=== PATIENT | female | born 1995 | race Hispanic/Latino ===

== ENCOUNTER 2018-03-09 08:58 | Outpatient (CLI) | payer OTHER | END 2018-03-09 08:59 | disposition home or self-care (01) | LOC: BICULT 08:58 | PROVIDERS: ATTEND Family Medicine | DX: O99.89 Other specified diseases and conditions complicating pregnancy, childbirth and the puerperium (principal); R10.9 Unspecified abdominal pain; Z3A.21 21 weeks gestation of pregnancy | CPT/HCPCS: 76700; 76805 ==

== ENCOUNTER 2018-07-07 03:57 | Inpatient (IN) | payer OTHER ==
[2018-07-07 04:32] VITALS: BMI 29.9
[2018-07-07] MEDS: Lactated Ringer's 1,000 ML IV SCH ×3 (05:40→20:18)
[2018-07-07 06:07] LABS: Hemoglobin 10.7 g/dL (12.0-16.0); Mean Corpuscular HGB CONC 33.4 g/dL (32.0-36.0); Mean Corpuscular Hemoglobin 27.6 pg (27.0-31.0); Mean Corpuscular Volume 82.5 fL (78.0-98.0); Mean Platelet Volume 7.8 fL (7.4-10.4); Platelet Count 285 thou/uL (130-400); RBC Distribution Width 12.1 % (11.5-14.5); Red Blood Cell (RBC) Count 3.88 mill/uL (4.20-5.40); White Blood Cell (WBC) Count 7.7 thou/uL (4.8-10.8)
[2018-07-07] MEDS ORDERED: Ondansetron HCl/PF 4 MG/2 ML Vial IVP PRN ×2 (06:16→12:18)
[2018-07-07] MEDS ORDERED: Butorphanol Tartrate 1 MG/ML VIAL SLOW IVP PRN (06:16)
[2018-07-07] MEDS ORDERED: Promethazine HCl 25 MG/ML VIAL IM PRN ×2 (06:16→12:18)
[2018-07-07] MEDS ORDERED: Methylergonovine 0.2 MG/ML VIAL IM PRN (06:30)
[2018-07-07] MEDS ORDERED: NS / Oxytocin 40 units/1000ml 1,000 ML IV SCH (06:30)
[2018-07-07] MEDS ORDERED: Misoprostol 200 MCG TAB RC PRN (06:30)
[2018-07-07] MEDS ORDERED: Carboprost 250 MCG/ML AMP IM PRN (06:30)
[2018-07-07] MEDS ORDERED: Penicillin G Potassium 5 MILL.UNITS in Sodium Chloride 0.9% 100 ML IVPB SCH (06:30)
[2018-07-07] MEDS ORDERED: NS w/ Oxytocin 10 units 500 ML IV SCH (06:30)
[2018-07-07] MEDS ORDERED: Lidocaine 1% (PF) 30 ML VIAL SC PRN (06:30)
[2018-07-07] MEDS ORDERED: Ibuprofen 800 MG TAB PO PRN (06:30)
[2018-07-07 06:46] LABS: HBSAg Index 0.14 S/CO (0-0.99); Hep B Surf Ag Non-Reactive S/CO (NonReactive); Syphilis Antibody Nonreactive (Nonreactive); Syphilis Antibody Index 0.04 S/CO (<1.00 Non-Reactive)
[2018-07-07] MEDS: NS w/ Oxytocin 10 units 500 ML IV SCH ×2 (07:15→11:01)
[2018-07-07] MEDS ORDERED: Lidocaine 2% MPF 10 ML AMP (For Epidural Use) ONE (09:00)
[2018-07-07] MEDS ORDERED: Bupivacaine/Epinephrine 0.25% 30 ML VIAL ONE (09:00)
[2018-07-07] MEDS ORDERED: DISCONTINUE ALL PREVIOUS NARCOTICS FS SCH (11:15)
[2018-07-07] MEDS ORDERED: Lactated Ringer's 500 ML IV PRN (12:18)
[2018-07-07] MEDS ORDERED: Naloxone HCl 0.4 mg/ml Vial IVP PRN ×2 (12:18)
[2018-07-07] MEDS ORDERED: Eucerin (Mineral Oil/Petrolatum,White) 30 gm Jar TOP PRN (12:18)
[2018-07-07] MEDS ORDERED: diphenhydrAMINE 50 MG/ML VIAL IVP PRN (12:18)
[2018-07-07] MEDS ORDERED: ePHEDrine/0.9% NaCl/PF SYRINGE 50 mg/10 ml SLOW IVP PRN (12:18)
[2018-07-07] MEDS ORDERED: fentaNYL Citrate/PF 400 MCG, Bupivacaine 0.5% 20 ML in Sodium Chloride 0.9% 72 ML EPIDURAL SCH (12:30)
[2018-07-07] MEDS ORDERED: Communication Order-Pharmacy FS SCH (12:30)
[2018-07-07] MEDS: Bupivacaine 0.5% 20 ML, fentaNYL Citrate/PF 400 MCG in Sodium Chloride 0.9% 72 ML EPIDURAL SCH ×2 (12:35→20:26)
[2018-07-07] MEDS: Penicillin G 2.5 MILL.units 50 ML IVPB SCH ×3 (14:32→23:12)
--- NOTE | 2018-07-07 20:32 | PDOC.EVN ---
Event Note - Event Note Event Note: Came to reevaluate the patient in labor. Was doing well all day with category I FHT and then had a 7 minute deceleration into the 60's with slow recovery. Repositioned to knee chest and FSE and IUPC placed. On review of the tracing, she had several contractions about a minute apart then had an episode of vomiting which preceeded the deceleration. When I arrived on the unit the baby was back to baseline 140, with moderate variability and accelerations. Adequate MVU noted. CTX still Q2 minutes with pitocin off. Will continue to labor without pitocin for now and restart only if no cervical change. SVE per the RN /-1.
[2018-07-08] MEDS: Penicillin G 2.5 MILL.units 50 ML IVPB SCH ×3 (03:02→15:23)
[2018-07-08] MEDS: Bupivacaine 0.5% 20 ML, fentaNYL Citrate/PF 400 MCG in Sodium Chloride 0.9% 72 ML EPIDURAL SCH (03:39)
[2018-07-08] MEDS: Lactated Ringer's 1,000 ML IV SCH (03:54)
--- NOTE | 2018-07-08 08:31 | PDOC.EVN ---
Event Note - Event Note Event Note: Evaluated patient in labor. Very slow cervical change overnight but still changing. On pitocin 8mu. FHT category II - occasional variable decels only with vomiting or sitting straight up in bed. Plan discussed with patient and she feels good continuing to labor. No immediate distress. SVE 9.5/100/-1 , asynclitic. Continue expectant management for now. CTX are adequate.
[2018-07-08] MEDS: NS / Oxytocin 40 units/1000ml 1,000 ML IV SCH ×2 (10:07→14:33)
--- NOTE | 2018-07-08 10:28 | PDOC.OPDEL ---
OB Operative/Delivery Note Delivery Dr/Surgeon: Andreas Pre-Delivery Diagnosis: active labor, ruptured membrane Procedure/Post Delivery Dx: spontaneous vaginal delivery Weeks gestation: 39 Anesthesia: epidural - Findings New Baby Sex: male - 1 min: 8 - 5 min: 9 - Additional Findings/Plan Placenta delivered: spontaneous Repaired Obstetrical Laceration: none Compilations/Other Findings: Progressed to complete and pushing, delivered live male, head EUNICE, no nuchal cord, shoulders and body easily followed, infant placed on mother's abdomen. Placenta delivered spontaneously and intact. Uterine fundus firm after delivery. Mom and baby in excellent condition attempting to breastfeed.
[2018-07-08] MEDS ORDERED: Milk Of Magnesia 30 ML UDCUP PO PRN (11:53)
[2018-07-08] MEDS ORDERED: Bisacodyl 10 MG SUPP PR PRN (11:53)
[2018-07-08] MEDS ORDERED: Preparation H Ointment 28 GM TUBE PR PRN (11:53)
[2018-07-08] MEDS ORDERED: diphenhydrAMINE 25 MG CAP PO PRN (11:53)
[2018-07-08] MEDS: Ibuprofen 800 MG TAB PO SCH ×2 (12:43→21:38)
[2018-07-08] MEDS: Lanolin Ointment 7 GM TUBE TOP PRN (18:59)
[2018-07-08] MEDS: Ferrous Sulfate 325 MG TAB PO SCH (18:59)
[2018-07-08] MEDS: Docusate Calcium (SURFAK) 240 MG CAP PO SCH (21:38)
[2018-07-09] MEDS ORDERED: Benzocaine/Menthol 20-0.5% 60 ML CAN TOP PRN (00:32)
[2018-07-09] MEDS: Ibuprofen 800 MG TAB PO SCH ×2 (05:16→13:27)
[2018-07-09 05:22] LABS: Mean Corpuscular HGB CONC 33.2 g/dL (32.0-36.0); Mean Corpuscular Hemoglobin 27.6 pg (27.0-31.0); Mean Corpuscular Volume 83.3 fL (78.0-98.0); Mean Platelet Volume 7.6 fL (7.4-10.4); Platelet Count 232 thou/uL (130-400); RBC Distribution Width 12.3 % (11.5-14.5); Red Blood Cell (RBC) Count 3.26 mill/uL (4.20-5.40); White Blood Cell (WBC) Count 13.7 thou/uL (4.8-10.8)
[2018-07-09 07:41] VITALS: BP 115/74; TEMP 99
[2018-07-09] MEDS: Docusate Calcium (SURFAK) 240 MG CAP PO SCH (09:07)
[2018-07-09] MEDS: Ferrous Sulfate 325 MG TAB PO SCH (09:07)
[2018-07-09] MEDS: Lanolin Ointment 7 GM TUBE TOP PRN ×2 (09:09→13:27)
--- NOTE | 2018-07-09 09:09 | PDOC.PP ---
Post Progress Note Post Day #: 1 Subjective: No c/o, doing well. well. PO intake tolerated: yes Flatus: yes Ambulation: yes Vital Signs (12 hours) Temp Pulse Resp BP Pulse Ox 07/09/18 08:00 97 07/09/18 07:40 99.0 F 77 18 115/74 97 07/09/18 05:16 98.3 F 68 18 97/50 L 07/09/18 00:40 97.4 F L 66 18 105/58 L Weight Weight 143 lb - Physical Examination General: NAD Cardiovascular: no m/r/g, RRR Respiratory: clear to auscultation bilaterally, non-labored breathing Abdominal: + bowel sounds, lochia, no distention, appropriately TTP Psychiatric: A&Ox3, normal affect Result Diagrams: 07/09/18 05:14 Additional Labs: Post Labs Blood Type O POSITIVE 07/07/18 05:55 Hep Bs Antigen Non-Reactive S/CO (NonReactive) 07/07/18 05:55 (1) Vaginal delivery Code(s): O80 - ENCOUNTER FOR FULL-TERM UNCOMPLICATED DELIVERY Status: Acute
== END 2018-07-09 14:30 | disposition home or self-care (01) | DRG 775 ==
LOC: L&D/OP 03:57 → L&D 05:53 → 3SW 07-08 14:28
PROVIDERS: ADMIT Family Medicine; ATTEND Family Medicine
PROC: 10E0XZZ Delivery of Products of Conception, External Approach (ICD-10-PCS; principal; 2018-07-07)
DX: O99.824 Streptococcus B carrier state complicating childbirth (principal); O76 Abnormality in fetal heart rate and rhythm complicating labor and delivery; Z3A.39 39 weeks gestation of pregnancy; Z37.0 Single live birth; O77.0 Labor and delivery complicated by meconium in amniotic fluid
CPT/HCPCS: 36415; 51702; 85027; 86780; 86850; 86900; 86901; 87340; 99285; J2001; J2540; J3010; J3490; J7050

== ENCOUNTER 2018-09-10 01:57 | Observation (INO) | payer OTHER ==
[2018-09-10] MEDS ORDERED: Ondansetron PF 4 MG/2 ML Vial ONE (02:33)
[2018-09-10] MEDS ORDERED: Morphine 4 MG/ML VIAL ONE (02:33)
[2018-09-10 02:56] LABS: #Basophils 0.1 thou/uL (0.0-0.2); #Eosinphils 0.1 thou/uL (0.0-0.7); #Lymphocytes 3.3 thou/uL (1.20-3.40); #Monocytes 0.5 thou/uL (0.11-0.59); %Basophils 1.3 % (0.0-1.0); %Eosinophils 1.2 % (0.0-10.0); %Lymphocytes 33.2 % (21.0-51.0); %Monocytes 4.5 % (0.0-10.0); %Neutrophils 59.8 % (42.0-75.0); Hemoglobin 12.2 g/dL (12.0-16.0); Mean Corpuscular HGB CONC 32.4 g/dL (32.0-36.0); Mean Corpuscular Hemoglobin 27.5 pg (27.0-31.0); Mean Corpuscular Volume 84.8 fL (78.0-98.0); Mean Platelet Volume 7.1 fL (7.4-10.4); Platelet Count 315 thou/uL (130-400); RBC Distribution Width 14.8 % (11.5-14.5); Red Blood Cell (RBC) Count 4.45 mill/uL (4.20-5.40)
[2018-09-10] MEDS ORDERED: Morphine 2 MG/ML SYRINGE ONE ×3 (03:15→03:49)
[2018-09-10 03:23] LABS: ALT (SGPT) 33 U/L (8-55); AST (SGOT) 28 U/L (5-34); Albumin 4.3 g/dL (3.5-5.0); Alkaline Phosphatase 90 U/L (40-150); Anion Gap 16 mmol/L (10-20); BUN (Urea Nitrogen) 13 mg/dL (7.0-18.7); Bilirubin, Total 0.5 mg/dL (0.2-1.2); Calc. Creatinine Clearance 0 mL/min (70-130); Calcium 9.4 mg/dL (7.8-10.44); Carbon Dioxide 23 mmol/L (22-29); Chloride 104 mmol/L (98-107); Estimated GFR-MDRD 81; Globulin 3.3 g/dL (2.4-3.5); Glucose 108 mg/dL (70-105); Lipase 16 U/L (8-78); Potassium 3.5 mmol/L (3.5-5.1); Protein, Total 7.6 g/dL (6.0-8.3); Sodium 139 mmol/L (136-145)
[2018-09-10 04:01] LABS: Bilirubin Negative (Negative); Blood, Urine Moderate (Negative); Clarity CLEAR (Clear); Glucose, Urine (Dipstick) Negative (Negative); Leukocyte Trace (Negative); Nitrite Positive (Negative); Protein, Urine (Dipstick) 30 mg/dL (Neg-Trace); Specific Gravity, Urine 1.027 (1.002-1.036); Urobilinogen 0.2 mg/dL (0.2-1.0)
[2018-09-10 04:03] LABS: Pregnancy Test - Urine (BHCG) POSITIVE (Negative); Pregu Control Background? CLEAR/WHITE (CLR/WHITE); Pregu Control Bar Appear? YES (CONTROL BAR); Specific Gravity 1.027 (1.002-1.036)
[2018-09-10 04:04] LABS: Bacteria/HPF Rare-Few HPF (None Seen); Pathc Cast-AUWi Flag 1.01 (0-2.49); RBC/HPF 21-50 HPF (0-3)
[2018-09-10 04:17] LABS: Hyaline Casts/LPF 0-3 HYALINE CAST LPF (0-3 Hyaline); Renal Epithelial None Seen HPF (0-3); Transitional Epithelial NONE SEEN HPF (0-3)
[2018-09-10] MEDS ORDERED: cefTRIAXone\\ROCEPHIN 1 GM VIAL ONE (05:35)
--- NOTE | 2018-09-10 06:01 | HP ---
DATE OF ADMISSION: 09/10/2018 TIME OF EVALUATION: 04:40-05:00 LOCATION: Bed 12. The patient was first seen by Dr. Aaron. The patient was seen with Dr. Estefania Mathew with [facility] [place]. CHIEF COMPLAINT: New onset vaginal bleeding and pelvic pain at 2 months with a positive u rine test. HISTORY OF PRESENT ILLNESS: This is a 23-year-old G1, P1, who is status post spontaneous vaginal del aguilar on 07/08/[address] Johns that was uncomplicated. She did have a history of nonmedically-ministerio ated gestational diabetes (A1). She states that she began to have vaginal intercourse about 4 weeks without contraception and had some onset of pain about 24 hours ago. She has had vaginal bleeding since arrival now. PAST MEDICAL HISTORY: Negative. OB HISTORY: She is a G1, P1, status post vaginal delivery on 07/08/2018, makes her about 8 weeks. ALLERGIES: VICODIN. SOCIAL HISTORY: No smoking and only social drinker. PHYSICAL EXAMINATION: VITAL SIGNS: Blood pressure is normal at 124/58. She is nontachycardic and a pulse of 80. She is a febrile. GENERAL: Clinically, she is in no acute distress. ABDOMINAL EXAM: Shows no rebound, but some discomfort on deep palpation. PELVIC EXAM: Shows vaginal bleeding, but no pelvic exam was performed. LABORATORY ASSESSMENT: 1. Hematocrit is 37. Complete metabolic profile was normal with normal liver function and normal cr eatinine. 2. Beta hCG is pending, status post positive UCG. 3. Ultrasound shows an indeterminate complex mass about 1 x 2 x 3 cm about the right anterior uterin e location. Possible fluid in the pelvis. ASSESSMENT: Two months sexually active female with a positive UCG and of unknow n location. PLAN: 1. Plan discussed with the patient at bedside that we need to assess her beta hCG for clinical corre lation. 2. Per ACOG, level of discrimination is now 3500 for intrauterine gestational sac assessment. 3. I discussed with the patient if her beta hCG is under 3500 and she remains nontachycardic, we may consider watchful waiting with repeating of her beta hCG levels to see if they are spontaneously dec reasing. 4. If her beta hCG is greater than 3500 but less than 10,000, we may consider methotrexate for presu med ectopic if there is no intrauterine gestation confirmed. 5. She is Rh negative and so she will receive RhoGAM. In summary, we have a patient who is 2 months with a of unknown location, ectopi c possible, but unlikely at 2 months . This may be a complex corpus luteum that has ruptured with an early IUP versus miscarriage. For now, we need beta hCG for clinical correlatio n.
--- NOTE | 2018-09-10 06:24 | PDOC.EVN ---
Event Note - Event Note Event Note: Lab check: BHCG from 445 was 2293, under limit of detetction...now with VB. SAB? I have ordered hourly vitals, and we will recheck HCT and BHCG at 0800. IVFs. NPO for now.
[2018-09-10] MEDS: Lactated Ringer's 1,000 ML IV SCH ×4 (07:15→23:07)
--- NOTE | 2018-09-10 07:47 | PDOC.EVN ---
Event Note - Event Note Event Note: Lab: RH positive now and at delivery...no rhogam needed
[2018-09-10 08:00] LABS: #Basophils 0.1 thou/uL (0.0-0.2); #Lymphocytes 2.3 thou/uL (1.20-3.40); #Monocytes 0.2 thou/uL (0.11-0.59); #Neutrophils 6.4 thou/uL (1.40-6.50); %Basophils 0.7 % (0.0-1.0); %Eosinophils 0.1 % (0.0-10.0); %Lymphocytes 25.2 % (21.0-51.0); %Monocytes 2.6 % (0.0-10.0); %Neutrophils 71.4 % (42.0-75.0); Hemoglobin 11.5 g/dL (12.0-16.0); Mean Corpuscular HGB CONC 31.3 g/dL (32.0-36.0); Mean Corpuscular Hemoglobin 27.1 pg (27.0-31.0); Mean Corpuscular Volume 86.5 fL (78.0-98.0); Mean Platelet Volume 6.7 fL (7.4-10.4); Platelet Count 299 thou/uL (130-400); Red Blood Cell (RBC) Count 4.24 mill/uL (4.20-5.40); White Blood Cell (WBC) Count 8.9 thou/uL (4.8-10.8)
--- NOTE | 2018-09-10 08:20 | ULT ---
PRELIMINARY REPORT/[facility]/EMERGENCY AFTER HOURS PROCEDURE: EXAM: US , Transvaginal EXAM DATE/TIME: 09/10/2018 4:00 AM CLINICAL HISTORY: 23 years old, female; Pain; Other: Sever pelvic pain, vag bleeding; Gestational age or lmp: 2 mo post ; TECHNIQUE: Real-time transvaginal obstetrical ultrasound of the maternal pelvis and a first trimester with image documentation. Transvaginal imaging was used for better evaluation of the fetus and adnexa . COMPARISON: No relevant prior studies available. FINDINGS: Gestation: No intrauterine gestational sac visualized. There is a midline to left adnexal heterogeneo us mass measuring up to 3.5 cm containing a focal hypoechoic/anechoic area. Findings are concerning f or ectopic . Uterus/cervix: No intrauterine gestational sac. No myometrial mass. Right adnexa: No acute findings. No mass. Left adnexa: See above. Left ovary is unremarkable. Free fluid: Moderate free fluid/hemorrhage. IMPRESSION: Findings concerning for ectopic as described above. Moderate pelvic fluid/hemorrhage. THIS REPORT CONTAINS FINDINGS THAT MAY BE CRITICAL TO PATIENT CARE. The findings were verbally commun icated via telephone conference with ALOK FRANK at 4:57 AM DENTAL HYGIENE TEACHER on 09/10/2018. The findings were acknowledged and understood. Thank you for allowing us to participate in the care of your patient. Dictated and Authenticated by: Matthew Abraham MD 09/10/2018 5:07 AM Central Time ([place] & [place]) FINAL REPORT TRANSVAGINAL PELVIC ULTRASOUND WITH HERNANDEZ SCALE AND COLOR FLOW AND SPECTRAL DOPPLER IMAGING: Date: 09/10/18 FINDINGS/IMPRESSION: I agree with the preliminary report given by Gail. POS: AJAY
--- NOTE | 2018-09-10 08:36 | PDOC.EVN ---
Event Note - Event Note Event Note: 23 yo here for r/o ectopic. SAB in progress S: We went a saw pt this morning. She reports having some heavy spotting still. Reports having some mild pain when she moves her legs. Pt reports still have some pelvic pain as well. Denies any nausea or vomiting. Denies any headeaches dizziness. Denies any SOB or chest pain. ROS: all other ROS not listed above negative. O: Phys Exam Vital Signs: Temp 98.5, BP 118/59, Pulse 89, O2 99% General: alert and oriented HEENT: atraumatic, normocephalic Abdomen: Pelvis mildly tender to palpation. No rebound or guarding. No masses noted A/P r/o Ectopic -Repeat BHcG pending. If above 3500 will consider tx with methotrexate. -will repeat pelvic U/S at this time. -CBC repeat pending. Will assess blood loss. -Discussed with patient about possibility of performing a D/C to make sure SAB is intrauterine vs Ectopic. Will await labs and go back and discuss with patient in a few hours about plan further. Low suspicion for ectopic at this time. <Tushar Singh - Last Filed: 09/10/18 08:33> - Event Note Event Note: I have seen Ms Goyal and have reviewed the documentation and agree with Dr Singh. <Adrián Duran - Last Filed: 09/12/18 08:03>
[2018-09-10 10:32] VITALS: BMI 27.1
--- NOTE | 2018-09-10 13:17 | ULT ---
ULTRASOUND PELVIS ULTRASOUND TRANSVAGINAL: (LIMITED) Date: 09/10/18 Time: 12:01 PM HISTORY: 23-year-old female with pelvic pain and vaginal bleeding. Suspected ectopic . Follow-up free fluid in the pelvic cavity. COMPARISON: Ultrasound obtained earlier today on 09/10/18 at 4:00-4:30 AM TECHNIQUE: Transabdominal transducer used to evaluate intrapelvic contents and also the right upper quadrant of the abdomen. Endovaginal transducer used to evaluate intrapelvic contents. FINDINGS: The sole purpose of this study was to follow-up on the free fluid in the cul-de-sac. The amount of fr ee fluid in the cul-de-sac has markedly decreased since the ultrasound obtained from 4:00-4:30 AM thi s morning. Currently, the amount of free fluid in the cul-de-sac is very small. There is a small amou nt of free fluid in Morison's pouch at the right upper quadrant. No hydronephrosis of the right kidne y. IMPRESSION: Significant interval decrease in the volume of free fluid in the cul-de-sac since several hours ago. POS: AJAY
[2018-09-10] MEDS ORDERED: Acetaminophen 500 MG TAB PO PRN (17:46)
[2018-09-10] MEDS ORDERED: Ibuprofen 800 MG TAB PO PRN (17:51)
[2018-09-10 18:51] LABS: Bilirubin Negative (Negative); Blood, Urine Moderate (Negative); Clarity CLEAR (Clear); Glucose, Urine (Dipstick) Negative (Negative); Leukocyte Negative (Negative); Nitrite Negative (Negative); Protein, Urine (Dipstick) Negative (Neg-Trace); Specific Gravity, Urine 1.005 (1.002-1.036); Urobilinogen 0.2 mg/dL (0.2-1.0)
[2018-09-10 18:53] LABS: Bacteria/HPF None Seen HPF (None Seen); Hyaline Casts/LPF 0-3 HYALINE CAST LPF (0-3 Hyaline); Pathc Cast-AUWi Flag 0.14 (0-2.49); Squamous Epithelial 0-3 HPF (0-3); WBC/HPF None Seen HPF (0-3)
--- NOTE | 2018-09-10 19:12 | PDOC.EVN ---
Event Note - Event Note Event Note: 23 yo here to r/o Ectopic. Went and saw pt at 17:30. Pt reports eating about half of her food. Denies any n /v. Reports not having much an appetite. Pt still reports having some spotting when laying down. Yet reports amount of blood similar to her period both times when she got up and went to the restroom. She reports still feeling pain in her RLQ and reports pain worse with movement. Says that pain was so bad it was too uncomfortable for her to pee. Pt denies any fever chills. Denies any diarrhea constipation. Reports a little hard to pee due to the pain. After discussing tx options with pt we decided to keep her under observation overnight. -Tylenol & Motrin PRN for pain -Will repeat CBC and Bhcg in the morning. Will want to make sure BHcG is still trending down. -Will continue to assess pt overnight and if patient gets worse will discuss plan again about possible D&C.
[2018-09-11 05:40] LABS: BHCG - Serum POSITIVE (NEGATIVE); Pregs Control Background? CLEAR/WHITE (CLR/WHITE); Pregs Control Bar Appear? YES (CONTROL BAR)
[2018-09-11 06:08] LABS: Band 1 % (5-11); Eosinophils 1 % (0-10); Hemoglobin 10.9 g/dL (12.0-16.0); Lymphocytes 61 % (21-51); MDiff Complete? YES; Mean Corpuscular HGB CONC 31.5 g/dL (32.0-36.0); Mean Corpuscular Hemoglobin 27.2 pg (27.0-31.0); Mean Corpuscular Volume 86.6 fL (78.0-98.0); Mean Platelet Volume 6.9 fL (7.4-10.4); Metamyelocyte 1 % (0-0); Monocytes 8 % (0-10); Neutrophil 25 % (42-75); PLT Morphology Comment Appears Adequate; Platelet Count 258 thou/uL (130-400); RBC Distribution Width 14.9 % (11.5-14.5); RBC Morphology Normal; Reactive Lymphocytes 3 % (0-10); White Blood Cell (WBC) Count 6.9 thou/uL (4.8-10.8)
--- NOTE | 2018-09-11 07:36 | PDOC.EVN ---
Event Note - Event Note Event Note: 23 yo here to r/o Ectopic. S: Pt reports doing better this morning. Reports pain has improved. Has been getting up and moving around and reports pain better. Able to go the bathroom without trouble sitting. Pt reports still having some spotting. But states bleeding overall has gotten rubber ball finisher. Pt denies any urinary sx's. Denies any burning when she pees. Pt denies any fever or chills. Denies any n/v/d/c. O: Selected Entries 09/10/18 09/11/18 20:00 02:18 Temperature 98.1 F Pulse Rate 60 Blood Pressure 97/55 L Respiratory 18 Rate O2 Sat by Pulse 98 Oximetry Oxygen Delivery Room Air Method General; alert and oriented HEENT; Atraumatic, normocephlaic Resp: CTA, no wheezes or crackles Cardio: RRR, no murmurs or gallops Abdomen: mildly tender to palpation in RLQ. no rebound. No masses. No hernia noted. Musk: Moves all extremities, no edema. Neuro: No focal neuro defecit. Assessment: Spontaneous Plan: BHcG continues to trend down. Pain improved. repeat U/A negative. repeat U/S yesterday showed decreased fluid from previous. No ectopic was ever noted. At this time likely can d/c patient home. Will have repeat BHcG tmrw with PCP. Discussed ER precautions with pt. Discussed if pain gets worse or bleeding gets heavier to return to ER. continue tylenol and motrin PRN for pain Lab: Laboratory Tests 09/10/18 09/10/18 09/10/18 02:47 04:46 07:52 Hgb 12.2 Total Beta HCG 2293.66 1844.55 Urine Protein Urine Glucose (UA) Urine Ketones Urine Blood Urine Nitrite Urine Bilirubin Ur Leukocyte Esterase Urine RBC Urine WBC Ur Squamous Epith Cells Urine Bacteria Hyaline Casts 09/10/18 09/10/18 09/11/18 07:52 18:30 05:23 Hgb 11.5 L 10.9 L Total Beta HCG Urine Protein Negative Urine Glucose (UA) Negative Urine Ketones Negative Urine Blood Moderate H Urine Nitrite Negative Urine Bilirubin Negative Ur Leukocyte Esterase Negative Urine RBC 11-20 H Urine WBC None Seen Ur Squamous Epith Cells 0-3 Urine Bacteria None Seen Hyaline Casts 0-3 HYALINE CAST 09/11/18 05:23 Hgb Total Beta HCG 1198.45 Urine Protein Urine Glucose (UA) Urine Ketones Urine Blood Urine Nitrite Urine Bilirubin Ur Leukocyte Esterase Urine RBC Urine WBC Ur Squamous Epith Cells Urine Bacteria Hyaline Casts
[2018-09-11 10:24] VITALS: BP 112/64; TEMP 98.2
--- NOTE | 2018-09-12 10:56 | PDOC.EVN ---
Event Note - Event Note Event Note: Post Discharge note: I reviewed a discharge order to sign off on. I signed the order. Patient was actually sent home by Dr Still. Please see his last entry dated for discharge notes.
== END 2018-09-11 11:35 | disposition home or self-care (01) ==
LOC: ERS 01:57 → 3SW 05:10
PROVIDERS: ADMIT Obstetrics & Gynecology; ATTEND Obstetrics & Gynecology
DX: O03.9 Complete or unspecified spontaneous abortion without complication (principal); Z88.8 Allergy status to other drugs, medicaments and biological substances
CPT/HCPCS: 36415; 76856; 76857; 80053; 81003; 81015; 81025; 83690; 84702; 84703; 85025; 86850; 86900; 86901; 96361; 96365; 96375; 96376; G0378; J0696; J2270; J2405